=== PATIENT | female | born 1955 | race Caucasian/White ===

== ENCOUNTER → 2020-12-10 10:11 | Outpatient (CLI) | payer MEDICARE, SELFPAY ==
--- NOTE | ~2020-12-10 | MM_ITS ---
EXAMINATION: MM screening [facility] BI w blue HISTORY: Screening mammogram TECHNIQUE: Craniocaudal and mediolateral oblique 3-D tomosynthesis images were obtained and synthetic 2-D images were generated. CAD analysis was submitted and interpreted. COMPARISON: 01/2018, 04/27/2016 bilateral digital screening mammogram examinations BREAST PARENCHYMAL COMPOSITION: There are scattered areas of fibroglandular density. FINDINGS: Bilateral small axillary tail lymph nodes. There is no evidence of suspicious mass, calcifi cation, or architectural distortion to suggest malignancy in either breast. There has been no suspici ous interval change. IMPRESSION: 1. No mammographic evidence of malignancy. 2. Recommend routine screening mammography in one year. BI-RADS Category 2: Benign finding(s). Reviewed, dictated and finalized at location A. TRICAL PROSPECTOR
== END ==
PROVIDERS: Visit Provider Physician Assistant
DX: Z12.31 Encounter for screening mammogram for malignant neoplasm of breast (principal)
CPT/HCPCS: 77063; 77067

== ENCOUNTER → 2021-03-31 11:38 | Outpatient (CLI) | payer MEDICARE, SELFPAY ==
--- NOTE | ~2021-03-31 | XR_ITS ---
EXAMINATION: XR knee LT 3V DATE: 03/31/2021 12:19 INDICATION: Left knee pain TECHNIQUE: Weight bearing anteroposterior, sunrise, and flexed lateral views of the left knee were ob tained COMPARISON: None. FINDINGS: Alignment is normal. No fracture. Moderate joint space narrowing in the medial compartment of the le ft knee. There are prominent marginal osteophytes in the lateral and patellofemoral compartments. A c ouple small loose osteochondral bodies at the anterior and posterior recess of the knee. Small enthes ophyte at the proximal pole of the patella. No joint effusion/layering lipohemarthrosis. Soft tissues are unremarkable. IMPRESSION: 1. Moderate severity medial compartment predominant tricompartmental osteoarthritis at the left knee. Reviewed, dictated and finalized at location A. IMPRESSION: 1. Moderate severity medial compartment predominant tricompartmental osteoarthr itis at the left knee.
== END ==
PROVIDERS: PCP Family Medicine; Visit Provider Nurse Practitioner Family
DX: M17.12 Unilateral primary osteoarthritis, left knee (principal)
CPT/HCPCS: 73562

== ENCOUNTER → 2021-10-01 01:33 | Outpatient (CLI) | payer MEDICARE, SELFPAY ==
[2021-10-01 13:34] LABS: Influenza Control Positive
[2021-10-02 14:05] LABS: SARS-CoV-2 RNA PCR Negative
== END ==
PROVIDERS: Visit Provider Physician Assistant
DX: R05.9 Cough, unspecified (principal); R50.9 Fever, unspecified; Z20.822 Contact with and (suspected) exposure to COVID-19
CPT/HCPCS: 87804; C9803; U0003; U0005

== ENCOUNTER → 2022-05-14 12:26 | Outpatient (CLI) | payer MEDICARE, SELFPAY ==
--- NOTE | ~2022-05-14 | MM_ITS ---
EXAMINATION: MM screening [facility] BI w blue HISTORY: Screening mammogram TECHNIQUE: Craniocaudal and mediolateral oblique 3-D tomosynthesis images were obtained and synthetic 2-D images were generated. CAD analysis was submitted and interpreted. COMPARISON: 12/10/2020, 02/03/2018, 04/27/2016 BREAST PARENCHYMAL COMPOSITION: The breasts are almost entirely fatty. FINDINGS: Scattered benign-appearing calcifications are present. Also seen is an unchanged low-densit y mass of the slightly inner, anterior right breast. There is no suspicious mass, calcification, or a rchitectural distortion to suggest malignancy in either breast. There has been no suspicious interval change. IMPRESSION: 1. No mammographic evidence of malignancy. 2. Recommend routine screening mammography in one year. BI-RADS Category 2: Benign finding(s). Reviewed, dictated and finalized at location A.
== END ==
PROVIDERS: PCP Family Medicine; Visit Provider Family Medicine
DX: Z12.31 Encounter for screening mammogram for malignant neoplasm of breast (principal)
CPT/HCPCS: 77063; 77067

== ENCOUNTER 2022-10-22 10:37 | Outpatient (CLI) | payer MEDICARE, SELFPAY | END 2022-10-22 10:38 | disposition home or self-care (01) | LOC: ANHLAB 10:41 | PROVIDERS: PCP Family Medicine; Visit Provider Physician Assistant | DX: R19.7 Diarrhea, unspecified (principal); Z86.19 Personal history of other infectious and parasitic diseases | CPT/HCPCS: 87045; 87427; 89055 ==

== ENCOUNTER 2022-11-04 13:16 | Outpatient (NON) | payer MEDICARE, SELFPAY ==
[2022-11-04 14:43] LABS: Toxigenic C. Diff NEGATIVE (NEGATIVE)
== END 2022-11-04 13:17 | disposition home or self-care (01) ==
PROVIDERS: PCP Family Medicine; Visit Provider Physician Assistant
DX: R19.7 Diarrhea, unspecified (principal); Z86.19 Personal history of other infectious and parasitic diseases
CPT/HCPCS: 87493

== ENCOUNTER 2022-11-30 11:19 | Outpatient (CLI) | payer MEDICARE, SELFPAY ==
--- NOTE | ~2022-11-30 | XR_ITS ---
Lumbosacral Spine: AP, oblique, and lateral views Clinical History: Pain Findings: The normal lordotic curve is maintained. Minimal anterior wedging deformity of T12 noted. M inimal grade 1 anterolisthesis of L3 over L4 noted. There is moderate degenerative disc narrowing at L4-L5 and L5-S1. There are mild facet joint degenerative changes throughout the lumbar spine. The sac roiliac joints are normally outlined. Impression: Minimal anterior wedging deformity of T12. Minimal grade 1 anterolisthesis of L3 over L4. Mild degenerative spondylitic changes, as noted above. Reviewed, dictated and finalized at location M. ELING REPRESENTATIVE Impression: Minimal anterior wedging deformity of T12. Minimal grade 1 anterolisthesis of L3 over L4. Mild degenerative spondylitic changes, as noted above.
== END 2022-11-30 11:20 | disposition home or self-care (01) ==
LOC: ANHIMG 11:27
PROVIDERS: PCP Family Medicine; Visit Provider Physician Assistant
DX: M54.31 Sciatica, right side (principal); M54.50 Low back pain, unspecified; M43.16 Spondylolisthesis, lumbar region; M43.8X4 Other specified deforming dorsopathies, thoracic region
CPT/HCPCS: 72110